=== PATIENT | male | born 1955 | race Caucasian/White ===

== ENCOUNTER 2019-12-01 14:29 | Emergency (ER) | payer MEDICARE, OTHER ==
[2019-12-01] MEDS ORDERED: Sodium Chloride 0.9% 2.5 ML Syringe FLUSH PRN (15:29)
[2019-12-01] MEDS ORDERED: Sodium Chloride 0.9% 10 ML Syringe FLUSH PRN (15:29)
[2019-12-01 17:15] LABS: BLOOD UREA NITROGEN,BUN 15 mg/dL (7.0-18.0); CARBON DIOXIDE,CO2 28.5 mmol/L (21.0-32.0); CHLORIDE,CL 101 mmol/L (98-107); GLUCOSE RANDOM 97 mg/dL (74-106); LIPASE 94 U/L (73-393); POTASSIUM,K 4.3 mmol/L (3.5-5.1); SODIUM,NA 138 mmol/L (136-148)
[2019-12-01] MEDS ORDERED: Iopamidol 755 MG/ML 200 ML Multipack Bottle IVPUSH ONE (17:51)
--- NOTE | 2019-12-01 19:07 | CT ---
INDICATION: Left lower quadrant abdominal pain, concern for diverticulitis TECHNIQUE: CT abdomen and pelvis acquired with IV contrast. Approximately 100 cc of Isovue 370 contrast was administered intravenously. COMPARISON: None available FINDINGS: The visualized portions of the lung bases are clear. The liver, spleen, pancreas and adrenal glands are unremarkable. The gallbladder is nondistended. The kidneys enhance symmetrically without hydronephrosis. There is a 1.6 cm hypoattenuating lesion within the lower pole of the right kidney which measures slightly more than simple fluid. A hypoattenuating lesion is seen within the lower pole of the left kidney measuring 1.7 cm this measures of simple fluid and is consistent with a cyst. Additional sub centimeter hypoattenuating lesions bilaterally are too small to fully characterize. There are no dilated loops of small bowel to suggest obstruction.The appendix is normal.There is no intraperitoneal free air or fluid. There is a small hiatal hernia. There is circumferential thickening of the proximal sigmoid colon. There are multiple adjacent diverticuli with fat stranding. This is suggestive of acute diverticulitis. No drainable fluid collection is seen. There is a small fat containing left inguinal hernia. The bones are unremarkable. IMPRESSION: 1. Acute diverticulitis of the proximal sigmoid colon. Negative for free air or drainable fluid collection. Recommend follow-up colonoscopy after treatment to exclude underlying malignancy. 2. Hypoattenuating renal lesion within the inferior pole of the right kidney is incompletely characterized on this exam as it measures more than a simple cyst. If no prior imaging is available for comparison consider initial nonemergent renal ultrasound for further characterization. Dictated by Carrie Perry MD @ 12/01/2019 7:04:17 PM Please note that all CT scans at this facility use dose modulation, iterative reconstruction, and/or weight-based dosing when appropriate to reduce radiation dose to as low as reasonably achievable. Dictated by: Carrie Perry MD @ 12/01/2019 19:04:52 (Electronically Signed)
[2019-12-01] MEDS ORDERED: Amoxicillin/Clavulanate K 875-125 MG Tab PO ONE (19:30)
--- NOTE | 2019-12-01 19:32 | EDM.PDOC ---
ED [facility] GENERAL MEDICAL PROBLEM - General Chief Complaint: Gastrointestinal Problem Stated Complaint: PAIN Time Seen by Provider: 12/01/19 15:34 - History of Present Illness INITIAL COMMENTS - FREE TEXT/NARRATIVE: HPI 63-year-old male with history of diverticulitis presents with approximately one day of left lower quadrant nonradiating pain. Denies dysuria, ureterolithiasis, urinary frequency, diarrhea, constipation, fevers, chills, or further symptoms. M/S/F/SocHx notable for: please see HPI; remainder reviewed with patient and in chart. ROS: Negative constitutional, eye, cardiovascular, pulmonary, GI, , MSK, skin , neurologic, psychiatric, endocrine unless noted in the HPI. Exam Gen: Pleasant, non-toxic appearing, resting comfortably. HEENT: NC, AT, PEERL, EOMI. Resp: Clear to auscultation bilaterally, normal work of breathing, no accessory muscle usage. Card: Regular rate and rhythm with no murmurs, rubs, or gallops, extremities warm and well perfused. GI: mild-moderate left lower quadrant tenderness palpation, otherwise nontender to palpation throughout all quadrants, no focal tenderness at McBurney's point, negative Phillips's sign, non-distended, no rebound or guarding. : No suprapubic tenderness to palpation. MSK: No visible deformities, strength and tone without visually appreciable deficit. Skin: Normal color with no visible lesions. Neuro: alert and oriented 3, no facial asymmetry, vision and hearing WNL. Psych: Mood and affect appropriate. Labs / Imaging: WBC 13.0, HB 16.0, sodium 138, potassium 4.3, total bilirubin 1.4, AST 21, ALT 29, alkaline phosphatase 100, lipase 94. CT Abd/Pelvis: 1. Acute diverticulitis of the proximal sigmoid colon. Negative for free air or drainable fluid collection. Recommend follow-up colonoscopy after treatment to exclude underlying malignancy. 2 Hypoattenuating renal lesion within the inferior pole of the right kidney is incompletely characterized on this exam as it measures more than a simple cyst. If no prior imaging is available for comparison consider initial non emergent renal ultrasound for further characterization. UA -negative nitrate, negative leukocyte esterase. MDM Previous chart, nursing note, labs, imaging, and vitals reviewed. A: 63-year-old male with history of diverticulitis presents with approximately one day of left lower quadrant nonradiating pain. DDx: diverticulitis, constipation, obstipation, ureterolithiasis, hernia. Evaluation: patient with acute uncomplicated diverticulitis. First dose Augmentin given in the emergency department. Patient prescribed Augmentin BID x 10 days. PCP follow-up recommended. No evidence of ureterolithiasis, UTI, hernia , constipation, obstipation by the above evaluation Impression: diverticulitis. Left Lower Abdominal Pain Score (Numeric/FACES): 7 - Related Data Allergies Allergy/AdvReac Type Severity Reaction Status Date / Time antibiotic unspecified Allergy Nausea Uncoded 12/01/19 15:14 Home Meds: Home Meds Amoxicillin/Potassium Clav [Augmentin 875-125 Tablet] 1 each PO BID #19 tablet 12/01/19 [Rx] Past Medical History Gastrointestinal History: Reports: Other (See Below) Other Gastrointestinal History: diverticulitis - Infectious Disease History Other Infectious Disease History: unsure - Past Surgical History Musculoskeletal Surgical History: Reports: Knee Replacement Social & Family History - Family History Family Medical History: Noncontributory - Tobacco Use Smoking Status *Q: Never Smoker - Recreational Drug Use Recreational Drug Use: No ED ROS GENERAL - Review of Systems Review Of Systems: See Below ED EXAM, GENERAL - Physical Exam Exam: See Below Course - Vital Signs Last Recorded V/S: Last Vital Signs Temp 36.8 C 12/01/19 19:16 Pulse 71 12/01/19 19:16 Resp 16 12/01/19 19:16 BP 145/92 H 12/01/19 19:16 Pulse Ox 95 12/01/19 19:16 - Orders/Labs/Meds Orders: Active Orders 24 hr Category Date Time Status Amoxicillin/Clavulanate K [Augmentin 875 MG/125 MG] Med 12/01/19 19:30 Once 1 tab PO ONETIME ONE Sodium Chloride 0.9% [Saline Flush] Med 12/01/19 15:29 Active 10 ml FLUSH ASDIRECTED PRN Sodium Chloride 0.9% [Saline Flush] Med 12/01/19 15:29 Active 2.5 ml FLUSH ASDIRECTED PRN Saline Lock Insert [OM.PC] Stat Oth 12/01/19 15:29 Ordered Medication Orders Amoxicillin/Clavulanate Potassium (Augmentin 875 Mg/125 Mg) 1 tab PO ONETIME ONE Stop: 12/01/19 19:31 Sodium Chloride (Saline Flush) 10 ml FLUSH ASDIRECTED PRN PRN Reason: Keep Vein Open Last Admin: 12/01/19 16:15 Dose: 10 ml Sodium Chloride (Saline Flush) 2.5 ml FLUSH ASDIRECTED PRN PRN Reason: Keep Vein Open Last Admin: 12/01/19 16:15 Dose: 2.5 ml Labs: Laboratory Tests 12/01/19 12/01/19 12/01/19 Range/Units 16:12 16:12 17:53 WBC 12.99 H (4.0-11.0) K/uL RBC 5.16 (4.50-5.90) M/uL Hgb 16.0 (13.0-17.0) g/dL Hct 47.2 (38.0-50.0) % MCV 91.5 (80.0-98.0) fL MCH 31.0 (27.0-32.0) pg MCHC 33.9 (31.0-37.0) g/dL RDW Std Deviation 47.8 (28.0-62.0) fl RDW Coeff of [place] 14 (11.0-15.0) % Plt Count 252 (150-400) K/uL MPV 9.70 (7.40-12.00) fL Neut % (Auto) 75.2 (48.0-80.0) % Lymph % (Auto) 13.5 L (16.0-40.0) % [place] % (Auto) 10.3 (0.0-15.0) % Eos % (Auto) 0.8 (0.0-7.0) % Baso % (Auto) 0.2 (0.0-1.5) % Neut # (Auto) 9.8 H (1.4-5.7) K/uL Lymph # (Auto) 1.8 (0.6-2.4) K/uL [place] # (Auto) 1.3 H (0.0-0.8) K/uL Eos # (Auto) 0.1 (0.0-0.7) K/uL Baso # (Auto) 0.0 (0.0-0.1) K/uL Nucleated RBC % 0.0 /100WBC Nucleated RBCs # 0 K/uL Sodium 138 (136-148) mmol/L Potassium 4.3 (3.5-5.1) mmol/L Chloride 101 (98-107) mmol/L Carbon Dioxide 28.5 (21.0-32.0) mmol/L BUN 15 (7.0-18.0) mg/dL Creatinine 1.1 (0.8-1.3) mg/dL Est Cr Clr Drug Dosing 70.05 mL/min Estimated GFR (MDRD) > 60.0 ml/min Glucose 97 (74-106) mg/dL Calcium 9.1 (8.5-10.1) mg/dL Total Bilirubin 1.4 H (0.2-1.0) mg/dL AST 21 (15-37) IU/L ALT 29 (14-63) IU/L Alkaline Phosphatase 100 (46-116) U/L Total Protein 7.4 (6.4-8.2) g/dL Albumin 4.0 (3.4-5.0) g/dL Globulin 3.4 (2.6-4.0) g/dL Albumin/Globulin Ratio 1.2 (0.9-1.6) Lipase 94 (73-393) U/L Urine Color YELLOW Urine Appearance CLEAR Urine pH 6.5 (5.0-8.0) Ur Specific [place] 1.010 (1.001-1.035) Urine Protein NEGATIVE (NEGATIVE) mg/dL Urine Glucose (UA) NEGATIVE (NEGATIVE) mg/dL Urine Ketones NEGATIVE (NEGATIVE) mg/dL Urine Occult Blood NEGATIVE (NEGATIVE) Urine Nitrite NEGATIVE (NEGATIVE) Urine Bilirubin NEGATIVE (NEGATIVE) Urine Urobilinogen 0.2 (<2.0) EU/dL Ur Leukocyte Esterase NEGATIVE (NEGATIVE) Meds: Medications Generic Name Dose Route Start Last Admin Trade Name Freq PRN Reason Stop Dose Admin Amoxicillin/Clavulanate Potassium 1 tab 12/01/19 19:30 Augmentin 875 Mg/125 Mg PO 12/01/19 19:31 ONETIME ONE Sodium Chloride 10 ml 12/01/19 15:29 12/01/19 16:15 Saline Flush FLUSH 10 ml ASDIRECTED PRN Administration Keep Vein Open Sodium Chloride 2.5 ml 12/01/19 15:29 12/01/19 16:15 Saline Flush FLUSH 2.5 ml ASDIRECTED PRN Administration Keep Vein Open Discontinued Medications Generic Name Dose Route Start Last Admin Trade Name Chidi PRN Reason Stop Dose Admin Iopamidol 100 ml 12/01/19 17:51 12/01/19 17:51 Isovue Multipack-370 (76%) IVPUSH 12/01/19 17:52 100 ml ONETIME ONE Administration Departure - Departure Time of Disposition: 19:31 Disposition: Home, Self-Care 01 Clinical Impression: Diverticulitis - Discharge Information Prescriptions: Amoxicillin/Potassium Clav [Augmentin 875-125 Tablet] 1 each PO BID #19 tablet Referrals: PCP,Not In Area [Primary Care Provider] - Additional Instructions: You were in seen in the [facility] Emergency Department for evaluation of abdominal pain were found have diverticulitis. You have been prescribed Augmentin for treatment of this condition. Please read and follow all of the instructions below. Please follow up with your primary care physician please follow-up your primary care physician in 2 days for repeat evaluation. At time of your emergency department care your note have some abnormalities on the CT of your abdomen pelvis. These are nonemergent findings that will require further care by your primary care physician. A summary of your CT report is included below. When calling for follow-up care, please make the office aware that this follow-up is from your recent emergency room visit. If for any reason you are refused follow- up, please contact the [facility] Emergency Department at and asked to speak to the emergency department charge nurse. CT Abd/Pelvis: 1. Acute diverticulitis of the proximal sigmoid colon. Negative for free air or drainable fluid collection. Recommend follow-up colonoscopy after treatment to exclude underlying malignancy. 2 Hypoattenuating renal lesion within the inferior pole of the right kidney is incompletely characterized on this exam as it measures more than a simple cyst. If no prior imaging is available for comparison consider initial non emergent renal ultrasound for further characterization. Your care today was limited to identifying and treating emergent medical problems only. Many people have subtle differences in their test results that require follow up with their outpatient physician(s) to correctly determine if this represents a normal variation or concerning abnormality with respect to your specific health. The care given to you today was limited to identifying and treating emergent medical problems - you need to request a copy of all of your medical records from today's visit and follow up with your outpatient physician(s) to review both today's visit and your overall health. If you have any new symptoms or if you are at all concerned about your health please return immediately to the emergency department. You have been diagnosed with diverticulitis. Diverticulitis is when small pouches form in the colon wall. The pouches are called diverticuli. This is a blind pouch. It sticks out of the side of the colon, much like the appendix. They can show up anywhere in the large bowel ( colon). However, they are most common in the left side. These outpouchings ( diverticuli) often cause no symptoms. Diverticulitis is a bacterial infection of the pouch. It is most common in people over 50 years old. Symptoms include abdominal (belly) pain, usually on the left lower side. Other symptoms are fever (temperature higher than 100.4F / 38C) and sometimes diarrhea. There may also be changes in your stool habits. Diverticulitis is treated with antibiotics and bowel rest. You have been prescribed Augmentin (875/125 mg three times daily for 10 days ), please take this as prescribed. Warning regarding both these medications are below. We recommend you limit activity and keep a liquid diet for the next two days. Symptoms should start to get better over the next 2-3 days. Come back right away for re-evaluation if you feel sicker at any time. Diverticulitis is a serious disease. Follow up with your primary doctor or general surgeon in the next 2-3 days. It is important to do so even if the symptoms get better. You may need another test after you have improved. This is to make sure there is no other reason for the symptoms. YOU SHOULD SEEK MEDICAL ATTENTION IMMEDIATELY, EITHER HERE OR AT THE NEAREST EMERGENCY DEPARTMENT, IF ANY OF THE FOLLOWING OCCURS: More abdominal (belly) pain. Continued or rising fever (temperature higher than 100.4F / 38C). Nausea (feeling sick to your stomach) or vomiting (throwing up) General weakness or lightheadedness. Bloody stools (bowel movements). Amoxicillin/Clavulanic Acid (Brand Name: Augmentin) Please take this medication as prescribed. Please take the medication for the full duration of the precription. If you feel you are experiencing a side effect, please call your physician or the emergency department. This is a penicillin type medicine used to treat a wide variety of bacterial infections. Amoxicillin/Clavulanic Acid Side Effects: Diarrhea, nausea, or vomiting may occur. If any of these effects persist or worsen, tell the doctor or pharmacist promptly. Taking this medication with food will help to reduce stomach upset. Tell the doctor right away if any of these rare but serious side effects occur: dark urine, persistent nausea/vomiting, severe stomach/abdominal pain, yellowing eyes/skin, easy bruising/bleeding, new signs of infection (such as fever, persistent sore throat), unusual tiredness. This medication may rarely cause a severe intestinal condition (Clostridium difficile-associated diarrhea) due to a type of resistant bacteria. This condition may occur during treatment or weeks to months after treatment has stopped. Do not use anti-diarrhea products or narcotic pain medications if you have any of the following symptoms because these products may make them worse. Tell the doctor right away if you develop: persistent diarrhea, abdominal or stomach pain/cramping, blood/mucus in your stool. Use of this medication for prolonged or repeated periods may result in oral thrush or a new yeast infection. Contact the doctor if you notice white patches in your mouth, a change in vaginal discharge or other new symptoms. A very serious allergic reaction to this drug is rare. However, get medical help right away if you notice any symptoms of a serious allergic reaction, including: rash, itching/swelling (especially of the face/tongue/throat), severe dizziness, trouble breathing. Amoxicillin can commonly cause a mild rash that is usually not serious. However, you may not be able to tell it apart from a rare rash that could be a sign of a severe allergic reaction. Therefore, get medical help right away if you develop any rash. Amoxicillin/Clavulanic Acid Precautions: Before taking this product, tell your doctor or pharmacist if you are allergic to amoxicillin or clavulanic acid; or to penicillin or cephalosporin antibiotics; or if you have any other allergies. This product may contain inactive ingredients, which can cause allergic reactions or other problems. Talk to your pharmacist for more details. Before using this medication, tell the doctor or pharmacist your medical history, especially of: liver disease (including liver problems caused by previous use of amoxicillin/clavulanic acid), kidney disease, a certain type of viral infection (infectious mononucleosis). This medication may contain aspartame. If you have phenylketonuria (PKU) or any other condition that requires you to limit/avoid aspartame (or phenylalanine ) in your diet, ask your doctor or pharmacist about using this medication safely. Before having surgery, tell your doctor or dentist about all the products you use (including prescription drugs, nonprescription drugs, and herbal products). This product may cause live bacterial vaccines (such as typhoid vaccine) not to work as well. Therefore, do not have any immunizations/vaccinations while using this medication without the consent of your doctor. During , this medication should be used only when clearly needed. Discuss the risks and benefits with your doctor. This medication passes into breast milk. Consult your doctor before breast- feeding. Amoxicillin/Clavulanic Acid Drug Interactions: Drug interactions may change how your medications work or increase your risk for serious side effects. This document does not contain all possible drug interactions. Keep a list of all the products you use (including prescription/ nonprescription drugs and herbal products) and share it with your doctor and pharmacist. Do not start, stop, or change the dosage of any medicines without your doctor's approval. Products that may interact with this drug include: methotrexate. Although most antibiotics are unlikely to affect hormonal control such as pills, patch, or ring, a few antibiotics (such as rifampin, rifabutin) can decrease their effectiveness. This could result in . If you use hormonal control, ask your doctor or pharmacist for more details. This medication may interfere with certain laboratory tests (including certain urine glucose tests), possibly causing false test results. Make sure laboratory personnel and all your doctors know you use this drug. You make take over the counter Acetaminophen (Tylenol) and Ibuprofen (Motrin or Aleve) as directed below for relief of pain. Take 600 mg of ibuprofen (three 200 mg tablets) with a glass of water every 6-8 hours as needed for pain or fever. Do not take if you have ulcers, GI bleeding, are , or are allergic to ibuprofen. Take 1,000 mg of acetaminophen (two 500 mg tablets) with a glass of water every 6-8 hours as needed for pain. Do not take if you are allergic to acetaminophen. If you have liver disease, please reduce your dose to a maximum of 2,000 mg per day. You can take these medications at the same time or on separate schedules. Do not take for more than 10 days. Do not take with alcohol or other acetaminophen containing medications. This medication may cause a mildly upset stomach, if so take it with a small snack. Stop taking it if you have persistent abdominal pain, heartburn, or any stomach pain. Do not take this medication if you have known ulcers. Please read the warnings at the end of this document regarding these medications. IBUPROFEN WARNING: This drug may infrequently cause serious (rarely fatal) bleeding from the stomach or intestines. Also, related drugs rarely have caused blood clots to form, resulting in heart attacks and strokes. This medication might also rarely cause similar problems. Talk to your doctor or pharmacist about the benefits and risks of treatment, as well as other possible medication choices. If you notice any of the following rare but very serious side effects, stop taking ibuprofen and seek immediate medical attention: black stools, persistent stomach/abdominal pain, vomit that looks like coffee grounds, chest pain, weakness on one side of the body, sudden vision changes, slurred speech. IBUPROFEN SIDE EFFECTS: Upset stomach, nausea, vomiting, heartburn, headache, diarrhea, constipation, drowsiness, and dizziness may occur. If any of these effects persist or worsen, notify your doctor or pharmacist promptly. If your doctor has directed you to use this medication, remember that he or she has judged that the benefit to you is greater than the risk of side effects. Many people using this medication do not have serious side effects. Tell your doctor immediately if any of these serious side effects occur: stomach pain, swelling of the hands or feet, sudden or unexplained weight gain, ringing in the ears ( tinnitus). Tell your doctor immediately if any of these unlikely but serious side effects occur: vision changes, rapid or pounding heartbeat, easy bruising or bleeding, difficult/painful swallowing. Tell your doctor immediately if any of these highly unlikely but very serious side effects occur: change in amount of urine, severe headache, very stiff neck, mental/mood changes, persistent sore throat or fever. This drug may rarely cause serious (possibly fatal) liver disease. If you notice any of the following highly unlikely but very serious side effects, stop taking ibuprofen and consult your doctor or pharmacist immediately: yellowing eyes and skin, dark urine, unusual/extreme tiredness. An allergic reaction to this drug is unlikely, but seek immediate medical attention if it occurs. Symptoms of an allergic reaction include: rash, itching/ swelling (especially of the face/tongue/throat), severe dizziness, trouble breathing. This is not a complete list of possible side effects. ACETAMINOPHEN SIDE EFFECTS: This drug usually has no side effects. If you do not have liver problems, the maximum dose of acetaminophen for adults is 4 grams per day (4000 milligrams). Taking more than the maximum daily amount may cause serious (possibly fatal) liver damage. Get medical help right away if you have any of the following symptoms of liver damage: persistent nausea/vomiting, extreme tiredness, stomach/abdominal pain, yellowing eyes/skin, dark urine. If you have liver problems, consult your doctor or pharmacist for a safe dosage of this medication. A very serious allergic reaction to this drug is rare. However , get medical help right away if you notice any symptoms of a serious allergic reaction, including: rash, itching/swelling (especially of the face/tongue/ throat), severe dizziness, trouble breathing. This is not a complete list of possible side effects. If you notice other effects not listed above, contact your doctor or pharmacist. DRUG INTERACTIONS: Your healthcare professionals (e.g., doctor or pharmacist) may already be aware of any possible drug interactions and may be monitoring you for it. Do not start, stop or change the dosage of any medicine before checking with them first. This drug should not be used with the following medications because very serious interactions may occur: cidofovir, ketorolac. If you are currently using any of these medications listed above, tell your doctor or pharmacist before starting ibuprofen. Before using this medication, tell your doctor or pharmacist of all prescription and nonprescription/herbal products you may use, especially of: anti-platelet drugs (e.g., cilostazol, clopidogrel), oral bisphosphonates (e.g., alendronate), other medications for arthritis (e.g., aspirin, methotrexate), "blood thinners" (e.g., enoxaparin, heparin, warfarin), corticosteroids (e.g., prednisone), cyclosporine, desmopressin, high blood pressure drugs (including UMM inhibitors such as captopril, angiotensin II receptor antagonists such as losartan, and beta- blockers such as metoprolol), lithium, pemetrexed, "water pills" (diuretics such as furosemide, hydrochlorothiazide, triamterene). Check all prescription and nonpresdr[facility] medicine labels carefully for other pain/fever drugs ( NSAIDs such as aspirin, celecoxib, naproxen). These drugs are similar to ibuprofen, so taking one of these drugs while also taking ibuprofen may increase your risk of side effects. Consult your doctor or pharmacist for more details. However, if your doctor has prescribed low doses of aspirin to prevent heart attack or stroke (usually at dosages of 81-325 milligrams a day), you should continue to take the aspirin. Daily use of ibuprofen may decrease aspirin 's ability to prevent heart attack/stroke. Talk to your doctor about using a different medication (e.g., acetaminophen) to treat pain/fever. If you must take ibuprofen, talk to your doctor about possibly taking immediate-release aspirin (not enteric-coated) while also taking the ibuprofen dose apart from your aspirin dose. Do not increase your daily dose of aspirin or change the way you take aspirin/other medications without your doctor's approval. This document does not contain all possible interactions. Therefore, before using this product, tell your doctor or pharmacist of all the products you use. Keep a list of all your medications with you, and share the list with your doctor and pharmacist. Prescriptions: If you are uninsured or have financial difficulties with filling your prescription(s), you may consider using a free pharmacy discount service such as [employer] ([employer]) or [employer] ([employer]). These services allow you to search for a medication on your phone (or computer) and obtain a coupon that usually has a significant discount from the list sun at a pharmacy. Your physician as well as [facility] does not have a financial relationship with either of these services. You may also wish to speak with your physician to determine if lower cost prescriptions are possible. Obtaining primary care: 1. [facility] provides pediatrics (children), family medicine (children, adults, and some obstetrical care), and internal medicine (adults). Further specialty care is also available. Same day appointments are available. They may be contacted at [phone] and are open Thursday through Thursday 8 AM to 5 PM. The [facility] are located at [facility], [address] [place] [address]. 2. [facility] offers family medicine, internal medicine, [facility], and further specialty care. [facility] may be contacted at [phone]. [facility] is located at [address] [place], [address]. 3. If you have health insurance, please also contact your insurer for a list of accepting providers under your policy, you may contact these providers for further health care. Occupational health: Work related injuries may consider following up with [facility], . Occupational health services are located at [address] [place] [address] and are open Thursday through Thursday from 7: 30 am to 5:00 pm. Obstetrical and Gynecological Care: [facility], , Thursday through Thursday 8 AM to 5 PM. [address] [place] [address]. Eyecare: If you have an eye injury you should follow up with your drain layer or with [facility], at [phone] or [phone] , they are located at [address] [place] [address]. Dental Care Daniel Bowman DDS. [address] [facility] [place], [place]. Ph. [phone] Crow Bowman DDS MS. [address] [facility] [address], [place]. Ph. [phone] Lexa Buitrago DDS. [address] [place] Ph. [phone] Balbir Mar DDS. [address] [facility] [address] [place]. Ph. [phone] Silver Maradiaga DDS PC. [address] [facility] [address] [place], [place]. Ph. [phone] Hugh Gee DDS. [address] [facility]. Ph. [phone] [facility]. [address] [place], [place]. Ph. [phone] [facility]. [address] [place] [address], [place]. Ph. [phone] [facility] [address] [place] [address] MRAI Jaquez [address]. Ph. [facility]. [address] [place] [address] [address] MARI Jaquez. Ph. [phone] [facility]. [address], MARI Jaquez. Ph. Sepsis Event Note - Evaluation Sepsis Screening Result: No Definite Risk - Focused Exam Vital Signs: Vital Signs Temp Pulse Resp BP Pulse Ox 12/01/19 19:16 36.8 C 71 16 145/92 H 95 12/01/19 18:05 36.2 C 71 16 136/95 H 95 12/01/19 15:09 37.1 C 90 18 141/105 H 94 L Date Exam was Performed: 12/01/19 Time Exam was Performed: 19:31 - My Orders Last 24 Hours: My Active Orders 12/01/19 19:30 Amoxicillin/Clavulanate K [Augmentin 875 MG/125 MG] 1 tab PO ONETIME ONE - Assessment/Plan Last 24 Hours: My Active Orders 12/01/19 19:30 Amoxicillin/Clavulanate K [Augmentin 875 MG/125 MG] 1 tab PO ONETIME ONE
== END 2019-12-01 20:20 | disposition home or self-care (01) ==
LOC: MW.ED 14:29
DX: K57.32 Diverticulitis of large intestine without perforation or abscess without bleeding (principal); Z88.1 Allergy status to other antibiotic agents
CPT/HCPCS: 74177; 80053; 81003; 83690; 85025; 99284; A9270; Q9967